=== PATIENT | female | born 1935 | race Two or more races ===

== ENCOUNTER 2024-02-27 19:45 | Inpatient (IN) | payer MEDICARE, BC ==
[~2024-02-27] VITALS: Ht 162.6 cm; Wt 50.3 kg
[2024-02-27] MEDS: OLANZAPINE 10 MG/VIAL IM ONE (21:03)
[2024-02-27 21:28] LABS: BASOPHILS % 0.2 % (0.0-2.0); EOSINOPHILS % 0.6 % (0.0-5.0); HEMOGLOBIN. 12.5 g/dL (12.0-16.0); LYMPHOCYTES % 11.1 % (20.0-50.0); MEAN CORPUSCULAR HEMOGLOBIN 28.2 pg (28.0-32.0); MEAN CORPUSCULAR HGB CONC 32.9 g/dL (31.0-37.0); MEAN CORPUSCULAR VOLUME 85.6 fL (81.0-99.0); MEAN PLATELET VOLUME 9.4 fl (7.4-10.4); MONOCYTES % 6.2 % (2.0-8.0); NEUTROPHILS % 81.9 % (40.0-76.0); PLATELET 277 x1000/uL (130-400); PROTHROMBIN TIME 11.1 sec (9.6-11.0); RED BLOOD CELL COUNT 4.44 mill/uL (4.2-5.4); RED CELL DISTRIBUTION WIDTH 13.9 % (11.6-14.6); WHITE BLOOD COUNT 7.9 x1000/uL (4.5-11.0)
[2024-02-27 21:30] LABS: CHLORIDE 113 mEq/L (98-107); POTASSIUM 4.9 mEq/L (3.5-5.1); SODIUM 148 mEq/L (136-145)
[2024-02-27 21:31] LABS: CALCIUM 9.8 mg/dL (8.7-10.4); CARBON DIOXIDE 22 mEq/L (21-32)
[2024-02-27 21:36] LABS: CREATININE 1.1 mg/dL (0.6-1.0); GLUCOSE 132 mg/dL (70-105); UREA NITROGEN BLOOD 17 mg/dL (9-23)
[2024-02-27 21:37] LABS: TROPONIN I HIGH SENSITIVITY 4 ng/L (3.0-34)
[2024-02-27 21:38] LABS: ALANINE AMINOTRANSFERASE < 7 IU/L (10-49); ALBUMIN 4.6 g/dL (3.2-4.8); ASPARTATE AMINOTRANSFERASE 28 IU/L (<34); BILIRUBIN DIRECT 0.3 mg/dL (<=3.0); BILIRUBIN TOTAL 0.9 mg/dL (0.1-1.0); LACTIC ACID 2.6 mmol/L (0.4-2.0); PROTEIN TOTAL 7.8 g/dL (6.0-8.3)
[2024-02-27] MEDS: PIPERACILLIN/TAZO 3.375G/50ML 50 ML IV ONE (21:42)
[2024-02-27] MEDS: VANCOMYCIN 1G PREMIX 200 ML IV ONE (22:18)
[2024-02-27] MEDS: ACETAMINOPHEN 325MG TABLET PO ONE (22:25)
[2024-02-27] MEDS: GABAPENTIN 300MG CAPSULE PO ONE (22:25)
[2024-02-27] MEDS: QUETIAPINE FUMARATE 25MG TABLET PO SCH (22:25)
[2024-02-28] MEDS ORDERED: ONDANSETRON HCL 4MG/2ML INJ IV PRN (00:45)
[2024-02-28] MEDS ORDERED: IPRATROPIUM/ALBUTEROL 0.5-3(2.5)MG/3ML NEB HHN PRN (00:45)
[2024-02-28] MEDS ORDERED: DEXTROSE 50% WATER 50ML SYRINGE IV PRN (00:45)
[2024-02-28] MEDS ORDERED: GUAIFENESIN 200MG/10ML SUGAR FREE UDC PO PRN (00:45)
[2024-02-28] MEDS ORDERED: ACETAMINOPHEN 325MG TABLET PO PRN (00:45)
[2024-02-28 01:18] LABS: ALBUMIN 4.5 g/dL (3.2-4.8)
[2024-02-28 01:19] LABS: PHOSPHORUS 2.8 mg/dL (2.5-4.9); PREALBUMIN 18.9 mg/dl (10.0-40.0)
[2024-02-28] MEDS: LACTATED RINGERS 1,000 ML IV SCH (01:39)
[2024-02-28] MEDS: SODIUM CHLORIDE 0.9% 1,000 ML IV ONE (01:39)
[2024-02-28 05:24] LABS: HEMATOCRIT 36.2 % (36.0-48.0); MEAN CORPUSCULAR HEMOGLOBIN 27.9 pg (28.0-32.0); MEAN CORPUSCULAR HGB CONC 33.1 g/dL (31.0-37.0); MEAN CORPUSCULAR VOLUME 84.2 fL (81.0-99.0); PLATELET 235 x1000/uL (130-400); RED CELL DISTRIBUTION WIDTH 13.8 % (11.6-14.6)
[2024-02-28 05:36] LABS: POTASSIUM 3.6 mEq/L (3.5-5.1)
[2024-02-28 05:38] LABS: CALCIUM 8.9 mg/dL (8.7-10.4)
[2024-02-28 05:42] LABS: CREATININE 1.1 mg/dL (0.6-1.0)
[2024-02-28 07:24] LABS: TROPONIN I HIGH SENSITIVITY 11 ng/L (3.0-34)
[2024-02-28 07:25] LABS: CREATINE KINASE 131 IU/L (34-145)
[2024-02-28] MEDS: GABAPENTIN 300MG CAPSULE PO SCH (10:06)
[2024-02-28] MEDS: PANTOPRAZOLE 40MG DR TABLET PO SCH (10:07)
[2024-02-28] MEDS ORDERED: GABA-1180 PO (10:34)
[2024-02-28] MEDS ORDERED: MELA2.5T16 PO (10:34)
[2024-02-28] MEDS ORDERED: ACET-2708 PO (10:34)
[2024-02-28] MEDS ORDERED: ESCI20TA37 MT (10:34)
[2024-02-28] MEDS ORDERED: AMLO10TA80 PO (10:34)
[2024-02-28] MEDS ORDERED: QUET25TA36 PO (10:34)
[2024-02-28 12:00] VITALS: BP 129/82; PULSE 43; RESP 18; TEMP 36.61404; O2SAT 96
[2024-02-28] MEDS: BLOOD SUGAR DIAGNOSTIC STRIP TEST SCH (12:40)
[2024-02-28] MEDS: INSULIN LISPRO 100 UNITS/ML SUBCUT SCH (13:10)
[2024-02-28 13:25] VITALS: BP 129/82; PULSE 81; RESP 18; TEMP 36.6404
[2024-02-28] MEDS: LEVOFLOXACIN 500MG PREMIX 100 ML IV NR (15:23)
[2024-02-28] MEDS: METRONIDAZOLE 500 MG PREMIX 100 ML IV SCH (15:23)
[2024-02-28 16:37] VITALS: BP 169/73; PULSE 88; RESP 18; TEMP 37.05852; O2SAT 97
[2024-02-28] MEDS: ACETAMINOPHEN 325MG TABLET PO PRN (17:31)
[2024-02-28 20:00] VITALS: BP 172/67; PULSE 85; RESP 18; TEMP 37.16964; O2SAT 98
[2024-02-28 20:31] LABS: TROPONIN I HIGH SENSITIVITY 16 ng/L (3.0-34)
[2024-02-28 20:32] LABS: CREATINE KINASE 738 IU/L (34-145)
[2024-02-28] MEDS: QUETIAPINE FUMARATE 25MG TABLET PO SCH (21:37)
[2024-02-28] MEDS: CLONIDINE 0.1MG TABLET PO PRN (21:37)
[2024-02-29] VITALS: BP 141/59; PULSE 69; RESP 20; TEMP 36.72516; O2SAT 98
[2024-02-29 04:00] VITALS: BP 149/59; PULSE 81; RESP 18; TEMP 36.9474; O2SAT 97
[2024-02-29 08:00] VITALS: BP 175/68; PULSE 74; RESP 18; TEMP 36.50292; O2SAT 96
[2024-02-29] MEDS: AMLODIPINE 10MG TABLET PO SCH (10:00)
[2024-02-29 12:25] VITALS: BP 122/104; PULSE 58; RESP 18; TEMP 36.44736; O2SAT 96
[2024-02-29] MEDS: KETOROLAC 15MG/ML VIAL IV NR (12:34)
[2024-02-29] MEDS: LEVOFLOXACIN 250MG PREMIX 50 ML IV SCH (14:13)
[2024-02-29] MEDS: DEXT 5%/0.45% NACL 1000ML 1,000 ML IV SCH (16:05)
[2024-02-29 16:36] VITALS: BP 125/40; PULSE 59; RESP 18; TEMP 36.55848; O2SAT 98
[2024-02-29 20:00] VITALS: BP 117/55; PULSE 65; RESP 18; TEMP 36.72516; O2SAT 97
[2024-03-01] VITALS: BP 122/41; PULSE 54; RESP 20; TEMP 37.55856; O2SAT 98
[2024-03-01 04:00] VITALS: BP 141/53; PULSE 55; RESP 20; TEMP 36.72516; O2SAT 97
[2024-03-01 07:00] LABS: HEMATOCRIT 33.5 % (36.0-48.0); MEAN CORPUSCULAR HEMOGLOBIN 28.3 pg (28.0-32.0); MEAN CORPUSCULAR HGB CONC 32.9 g/dL (31.0-37.0); MEAN CORPUSCULAR VOLUME 86.2 fL (81.0-99.0); PLATELET 197 x1000/uL (130-400); POTASSIUM 3.5 mEq/L (3.5-5.1); RED BLOOD CELL COUNT 3.88 mill/uL (4.2-5.4); RED CELL DISTRIBUTION WIDTH 13.9 % (11.6-14.6); WHITE BLOOD COUNT 4.7 x1000/uL (4.5-11.0)
[2024-03-01 07:01] LABS: CALCIUM 8.9 mg/dL (8.7-10.4)
[2024-03-01 08:00] VITALS: BP 159/62; PULSE 72; RESP 16; TEMP 36.33624; O2SAT 98
[2024-03-01] MEDS: PANTOPRAZOLE SODIUM 40 MG/VIAL IV SCH (08:44)
[2024-03-01] MEDS ORDERED: PROT40 PO (10:20)
[2024-03-01] MEDS ORDERED: IBUP-2028 MT (10:20)
[2024-03-01 10:35] VITALS: BP 159/62; PULSE 72; TEMP 97.4; O2SAT 98
[2024-03-01 12:00] VITALS: BP 154/54; PULSE 67; RESP 20; TEMP 36.3918; O2SAT 99
[2024-03-01 16:00] VITALS: BP 140/57; PULSE 60; RESP 18; TEMP 36.33624; O2SAT 99
== END 2024-03-01 18:35 | disposition home or self-care (01) | DRG 391 ==
LOC: ER 19:45 → EDBEDREQ 02-28 00:23 → 7WST 02-28 10:45
PROVIDERS: ADMIT Internal Medicine; ATTEND Internal Medicine
DX: A08.4 Viral intestinal infection, unspecified (principal); G93.41 Metabolic encephalopathy; E87.0 Hyperosmolality and hypernatremia; S52.522A Torus fracture of lower end of left radius, initial encounter for closed fracture; E87.20 Acidosis, unspecified; N17.9 Acute kidney failure, unspecified; G91.2 (Idiopathic) normal pressure hydrocephalus; F03.90 Unspecified dementia, unspecified severity, without behavioral disturbance, psychotic disturbance, mood disturbance, and anxiety; Z20.822 Contact with and (suspected) exposure to COVID-19; E87.8 Other disorders of electrolyte and fluid balance, not elsewhere classified; N18.9 Chronic kidney disease, unspecified; K43.9 Ventral hernia without obstruction or gangrene; I12.9 Hypertensive chronic kidney disease with stage 1 through stage 4 chronic kidney disease, or unspecified chronic kidney disease; R74.8 Abnormal levels of other serum enzymes; K57.30 Diverticulosis of large intestine without perforation or abscess without bleeding; Z79.4 Long term (current) use of insulin; Z79.899 Other long term (current) drug therapy; Y93.89 Activity, other specified; Y92.89 Other specified places as the place of occurrence of the external cause; Y99.8 Other external cause status; W19.XXXA Unspecified fall, initial encounter
CPT/HCPCS: 36415; 71045; 73100; 74176; 76705; 80048; 80076; 82040; 82550; 82962; 83036; 83605; 83735; 83880; 84100; 84134; 84145; 84484; 85025; 85027; 87426; 87804; 93005; 93970; 97166; 97530; 99291; C1893; J1885; J1956; J2470; J2543; J3370; J3490; J7030